=== PATIENT | male | born 1945 | race Caucasian/White ===

== ENCOUNTER 2021-12-30 07:47 | Day surgery (SDC) | payer MEDICARE, OTHER ==
[2021-12-30] MEDS ORDERED: Sodium Chloride 0.9% 10 ML Syringe IV ONE (07:48)
[2021-12-30] MEDS ORDERED: Midazolam 1 MG/ML 2 ML SDV IV ONE (07:48)
[2021-12-30] MEDS ORDERED: Dexamethasone 4 MG/ML SDV IV ONE (07:48)
[2021-12-30] MEDS ORDERED: Tropicamide 1% Ophth Soln 15 ML Bottle EYELF ONE (08:30)
[2021-12-30] MEDS ORDERED: Sodium Chloride 0.9% 10 ML Syringe FLUSH PRN (08:30)
[2021-12-30] MEDS ORDERED: Cataract Ophth Solution EYELF ONE (08:30)
[2021-12-30] MEDS ORDERED: Acetaminophen/Codeine 300-30 MG Tab PO PRN (08:30)
[2021-12-30] MEDS ORDERED: Phenylephrine 10% Ophth Soln 5 ML Bot EYELF ONE (08:30)
[2021-12-30] MEDS ORDERED: Ondansetron 4 MG/2 ML SDV IVPUSH PRN (08:30)
[2021-12-30] MEDS ORDERED: Timolol Maleate 0.5% Ophth Soln 5 ML Bottle EYELF ONE (08:30)
[2021-12-30] MEDS ORDERED: Proparacaine 0.5% Ophth Soln 15 ML Bottle EYELF ONE (08:30)
[2021-12-30] MEDS ORDERED: Acetaminophen 325 MG Tab PO PRN (08:30)
[2021-12-30] MEDS ORDERED: Moxifloxacin 0.5% Ophth Soln 3 ML Bottle EYELF ONE (08:30)
[2021-12-30] MEDS ORDERED: Povidone-Iodine 5% Sterile Ophth Soln 30 ML Bottle EYELF ONE ×2 (08:30→09:25)
[2021-12-30] MEDS ORDERED: Tobramycin 0.3% Ophth Drops 5 ML Bottle EYELF SCH (08:30)
[2021-12-30] MEDS ORDERED: Tetracaine HCl/PF 0.5% 4 ML Bottle EYELF ONE (09:25)
[2021-12-30] MEDS ORDERED: Diclofenac Sodium 0.1% Ophth Soln 5 ML Bottle EYELF ONE (09:26)
[2021-12-30] MEDS ORDERED: Apraclonidine 0.5% Ophth Soln 5 ML Bot EYELF ONE (09:26)
[2021-12-30] MEDS ORDERED: Dexamethasone/Neomycin/Polymyxin B Ophth Oint 3.5 GM Tube EYELF ONE (09:27)
[2021-12-30] MEDS ORDERED: Balanced Salt Solution Ophth Irrig 500 ML Bottle IOCULAR ONE (09:27)
[2021-12-30] MEDS ORDERED: Lidocaine 1% 30 ML SDV ONE (09:27)
[2021-12-30] MEDS ORDERED: Chondroitin Sulfate/Hyaluronate Sodium Ophth Inj 0.75 ML Syringe EYELF ONE (09:28)
[2021-12-30] MEDS ORDERED: Vancomycin 500 MG SDV EYELF ONE (09:28)
== END 2021-12-30 10:19 | disposition home or self-care (01) ==
LOC: DL.SDS 07:47
PROVIDERS: ATTEND Ophthalmology
DX: E11.36 Type 2 diabetes mellitus with diabetic cataract (principal); H25.812 Combined forms of age-related cataract, left eye; I10 Essential (primary) hypertension; E78.5 Hyperlipidemia, unspecified; J44.9 Chronic obstructive pulmonary disease, unspecified; M19.90 Unspecified osteoarthritis, unspecified site; G47.33 Obstructive sleep apnea (adult) (pediatric); Z87.891 Personal history of nicotine dependence; Z98.890 Other specified postprocedural states; Z79.4 Long term (current) use of insulin; Z79.899 Other long term (current) drug therapy; Z79.51 Long term (current) use of inhaled steroids; Z79.84 Long term (current) use of oral hypoglycemic drugs; Z79.02 Long term (current) use of antithrombotics/antiplatelets
CPT/HCPCS: 00142; 66984; A9270; J1100; J2250; J3370; J3490; V2632

== ENCOUNTER 2022-01-13 08:26 | Day surgery (SDC) | payer MEDICARE, OTHER ==
[2022-01-13] MEDS ORDERED: Dexamethasone 4 MG/ML SDV IV ONE (08:27)
[2022-01-13] MEDS ORDERED: Midazolam 1 MG/ML 2 ML SDV IV ONE (08:27)
[2022-01-13] MEDS ORDERED: Sodium Chloride 0.9% 10 ML Syringe IV ONE (08:27)
[2022-01-13] MEDS ORDERED: Povidone-Iodine 5% Sterile Ophth Soln 30 ML Bottle EYERT ONE ×2 (09:00→09:58)
[2022-01-13] MEDS ORDERED: Acetaminophen/Codeine 300-30 MG Tab PO PRN (09:00)
[2022-01-13] MEDS ORDERED: Timolol Maleate 0.5% Ophth Soln 5 ML Bottle EYERT ONE (09:00)
[2022-01-13] MEDS ORDERED: Proparacaine 0.5% Ophth Soln 15 ML Bottle EYERT ONE (09:00)
[2022-01-13] MEDS ORDERED: Phenylephrine 10% Ophth Soln 5 ML Bot EYERT ONE (09:00)
[2022-01-13] MEDS ORDERED: Tropicamide 1% Ophth Soln 15 ML Bottle EYERT ONE (09:00)
[2022-01-13] MEDS ORDERED: Ondansetron 4 MG/2 ML SDV IVPUSH PRN (09:00)
[2022-01-13] MEDS ORDERED: Tobramycin 0.3% Ophth Drops 5 ML Bottle EYERT SCH (09:00)
[2022-01-13] MEDS ORDERED: Moxifloxacin 0.5% Ophth Soln 3 ML Bottle EYERT ONE (09:00)
[2022-01-13] MEDS ORDERED: Cataract Ophth Solution EYERT ONE (09:00)
[2022-01-13] MEDS ORDERED: Sodium Chloride 0.9% 10 ML Syringe FLUSH PRN (09:00)
[2022-01-13] MEDS ORDERED: Acetaminophen 325 MG Tab PO PRN (09:00)
[2022-01-13] MEDS ORDERED: Tetracaine HCl/PF 0.5% 4 ML Bottle EYERT ONE (09:57)
[2022-01-13] MEDS ORDERED: Diclofenac Sodium 0.1% Ophth Soln 5 ML Bottle EYERT ONE (09:58)
[2022-01-13] MEDS ORDERED: Apraclonidine 0.5% Ophth Soln 5 ML Bot EYERT ONE (09:58)
[2022-01-13] MEDS ORDERED: Lidocaine 1% 5 ML VIAL ONE (09:59)
[2022-01-13] MEDS ORDERED: Dexamethasone/Neomycin/Polymyxin B Ophth Oint 3.5 GM Tube EYERT ONE (09:59)
[2022-01-13] MEDS ORDERED: Vancomycin 500 MG SDV EYERT ONE (10:00)
[2022-01-13] MEDS ORDERED: Balanced Salt Solution Ophth Irrig 500 ML Bottle IOCULAR ONE (10:00)
[2022-01-13] MEDS ORDERED: Chondroitin Sulfate/Hyaluronate Sodium Ophth Inj 0.75 ML Syringe EYERT ONE (10:00)
== END 2022-01-13 11:00 | disposition home or self-care (01) ==
LOC: DL.SDS 08:26
PROVIDERS: ATTEND Ophthalmology
DX: E11.36 Type 2 diabetes mellitus with diabetic cataract (principal); H25.811 Combined forms of age-related cataract, right eye; I10 Essential (primary) hypertension; E78.5 Hyperlipidemia, unspecified; E66.9 Obesity, unspecified; M19.90 Unspecified osteoarthritis, unspecified site; J44.9 Chronic obstructive pulmonary disease, unspecified; G47.33 Obstructive sleep apnea (adult) (pediatric); E53.8 Deficiency of other specified B group vitamins; Z87.891 Personal history of nicotine dependence; Z79.4 Long term (current) use of insulin; Z79.84 Long term (current) use of oral hypoglycemic drugs; Z79.899 Other long term (current) drug therapy; Z79.51 Long term (current) use of inhaled steroids; Z79.82 Long term (current) use of aspirin; Z68.41 Body mass index [BMI] 40.0-44.9, adult; Z98.890 Other specified postprocedural states
CPT/HCPCS: 00142; 66982; A9270; J1100; J2250; J3370; J3490; V2632